=== PATIENT | female | born 1970 | race Caucasian/White ===

== ENCOUNTER 2023-09-19 15:21 | Emergency (ER) | payer OTHER, SELFPAY ==
[2023-09-19 15:39] VITALS: BP 128/81; PULSE 93; RESP 14; TEMP 37; O2SAT 98; BMI 41.1
--- NOTE | 2023-09-19 16:10 | XR_ITS ---
Final Report Patient: AMAN NAYLOR Facility:?[facility] Patient ID:?[id number] Site Patient ID:?[id number]. Site :?[id number] Study:?XRay Extremity Right ANKLE 3V-09/19/2023 4:25:29 PM Ordering Physician:MARK Final Report: Indication: Fall, lateral pain Comparison: None available. Technique: AP, Lateral, and Oblique views right ankle were obtained Findings: There is no displaced fracture or dislocation. The ankle mortise is symmetrical. The talar dome is smooth and intact. The joint spaces are otherwise grossly preserved. There is moderate malleolar soft tissue swelling. Impression: Moderate malleolar soft tissue swelling without evidence of displaced fracture. Dictated by Guillermo Castro MD @ 09/19/2023 4:55:02 PM (Electronic Signature)
--- NOTE | 2023-09-19 16:11 | ED.GENADULT ---
HPI - General Adult General Chief complaint: Extremity Pain/Injury, Lower Stated complaint: Twisted right ankle, hit left knee Time Seen by Provider: 09/19/23 15:53 Source: patient Mode of arrival: ambulatory Limitations: no limitations History of Present Illness HPI narrative: Coming in today after falling off a curb while she was walking. She over stepped in her right her ankle rolled and she fell on to her left knee. She is complaining of left knee pain in right ankle pain. She states that she can walk. She denies any other injury. Related Data Allergies Allergy/AdvReac Type Severity Reaction Status Date / Time cephalexin Allergy Unknown Anaphylaxis Verified 09/19/23 15:37 Review of Systems Status of ROS: Reports: 6 or more systems reviewed and unremarkable except as noted in History and below [facility] Social History Smoking Status: Never smoker Do you use any of these nicotine containing products: None How often do you have a drink containing alcohol: never AUDIT-C Alcohol total score: 0 Non-prescribed substance use: denies use Exam Narrative: Exam Narrative: Obese, well-developed patient in no acute distress. Alert and oriented. Answers questions appropriately. Mood and affect are appropriate. Thoughts are goal oriented and rational. No tangential or magical thinking noted. Patient speaks in full sentences without needing to catch her breath. HEENT: Normocephalic atraumatic. Pupils are equally round reactive to light. Extraocular muscles are intact. Conjunctivae are moist without any icterus noted. Moist mucous membranes. Extremities: Patient has anterior bruising and a superficial abrasion of the left knee. She has mild tenderness with palpation but she has good range of motion. There is no obvious joint effusion. She has no tenderness with compression of the patella. The bruising is just distal to the patellar. The right ankle is markedly swollen on the lateral side. She has minimal tenderness however over the lateral malleolus, no tenderness over the medial malleolus. Normal DP and PT pulses. There is no ecchymosis noted. Const: Vital Signs, click to edit/add: Vital Signs - 24 hr 09/19/23 15:39 Temperature 98.6 F Pulse Rate [Pulse Oximeter] 93 Respiratory Rate 14 Blood Pressure [Ri ght Upper Arm] 128/81 Pulse Oximetry 98 Oxygen Delivery Me thod Room Air Course Course ED Course: I do not believe that there is any fractures of the knee and I do believe that the injuries are secondary to contusion. However we did go ahead and x-ray the ankle. This did not show any evidence of acute fractures. Vital Signs Vital signs: Initial Vital Signs Temperature 98.6 F 09/19/23 15:39 Temperature Source Temporal Artery Scan 09/19/23 15:39 Pulse Rate 93 09/19/23 15:39 Pulse Rhythm Regular 09/19/23 15:39 Respiratory Rate 14 09/19/23 15:39 Blood Pressure 128/81 09/19/23 15:39 Blood Pressure Mean 96 09/19/23 15:39 Blood Pressure Position Supine 09/19/23 15:39 Pulse Oximetry 98 09/19/23 15:39 Oxygen Delivery Method Room Air 09/19/23 15:39 Vital Signs Temperature 98.6 F 09/19/23 15:39 Pulse Rate 93 09/19/23 15:39 Respiratory Rate 14 09/19/23 15:39 Blood Pressure 128/81 09/19/23 15:39 Pulse Oximetry 98 09/19/23 15:39 Oxygen Delivery Method Room Air 09/19/23 15:39 Temperature 98.6 F 09/19/23 15:39 Pulse Rate 93 09/19/23 15:39 Respiratory Rate 14 09/19/23 15:39 Blood Pressure 128/81 09/19/23 15:39 Pulse Oximetry 98 09/19/23 15:39 Oxygen Delivery Method Room Air 09/19/23 15:39 Medical Decision Making [facility] Narrative Medical decision making narrative: 52-year-old female status post fall with contusion to the knee and ankle sprain. Imaging Data XR ankle: Attestation: I have reviewed the pertinent imaging results. Radiologist's impression: AP, Lateral, and Oblique views right ankle were obtained Findings: There is no displaced fracture or dislocation. The ankle mortise is symmetrical. The talar dome is smooth and intact. The joint spaces are otherwise grossly preserved. There is moderate malleolar soft tissue swelling. Impression: Moderate malleolar soft tissue swelling without evidence of displaced fracture. Discharge Plan Discharge Clinical Impression: Contusion of knee, Ankle sprain and strain Patient Disposition: Home, Self-Care Condition: Stable Additional Instructions: Okay to use ibuprofen and Tylenol as needed/as directed for discomfort. Elevate ankle as much as possible over the next 1-2 days. Wear Zhou wrap for compression and stability. Ice it for 20 minutes at a time, do not apply ice directly to skin. Do this 3-4 times per day. Activity as tolerated. Follow Up/Referrals: Provider,Not a Local [Primary Care Provider] - Stand Alone Forms: [employer] Data Info Instructions
[2023-09-19 17:12] VITALS: BP 128/81; PULSE 93; RESP 14; TEMP 37
== END 2023-09-19 17:13 | disposition home or self-care (01) ==
PROVIDERS: Emergency Provider Family Medicine
DX: S80.02XA Contusion of left knee, initial encounter (principal); S90.01XA Contusion of right ankle, initial encounter; W10.1XXA Fall (on)(from) sidewalk curb, initial encounter; Y93.01 Activity, walking, marching and hiking
CPT/HCPCS: 73610; 99283; 99284